=== PATIENT | female | born 1985 | race Caucasian/White ===

== ENCOUNTER 2025-03-26 09:43 | Emergency (ER) | payer OTHER, SELFPAY ==
[2025-03-26 09:50] VITALS: BP 125/79; PULSE 92; RESP 18; TEMP 36.6; O2SAT 100
--- OUTSIDE RECORDS SUMMARY | 2025-03-26 10:07 | XMS_ITS | Clinical Summary ---
Author Organization [facility] [address] Address [address] [place] [address] Phone Care Team Providers Care Open Source Developer Name Role Phone No, Physician Primary Care Provider [phone] Allergies No known active allergies Medications cetirizine (ZyrTEC) 10 mg tablet Take 1 tablet (10 mg total) by mouth daily 1 Active desvenlafaxine succinate (PRISTIQ) 50 mg 24 hr tablet Take 1 tablet (50 mg total) by mouth daily 2 Active norethindrone-e.e stradioL-iron (JUNEL FE 06/04) 1 mg-20 mcg (21)/75 mg (7) per tabletIndications :Oral contraceptive pill surveillance Take 1 tablet by mouth daily 84 tablet 4 2 Active Additional Information Patient not taking.Reported on 10/03/2024 buPROPion XL (WELLBUTRIN XL) 150 mg 24 hr tablet Take 1 tablet (150 mg total) by mouth daily 4 Active buPROPion XL (WELLBUTRIN XL) 300 mg 24 hr tablet Take 1 tablet (300 mg total) by mouth daily 4 Active atomoxetine (STRATTERA) 100 mg capsule Take 1 capsule (100 mg total) by mouth daily 5 Active busPIRone (BUSPAR) 15 mg tablet Take 1 tablet (15 mg total) by mouth 2 (two) times a day 5 Active Active Problems Problem Noted Date Diagnosed Date Menorrhagia with regular cycle 10/07/2020 Surgical History Surgery Date Site/Laterality Comments TUBAL LIGATION 05/16/2013 - 05/15/2014 AUGMENTATION MAMMOPLASTY 03/16/2024 - 04/14/2024 AUGMENTATION MAMMAPLASTY Medical History Medical History Date Comments Epilepsy (HCC) Abnormal Pap smear of cervix ear ly . HPV positive. Reportedly normal biopsy. Chlamydia 2003, 2017 Family History Medical History Relation Name Comments Diabetes Father Skin cancer Maternal Grandmother Diabetes Mother Hypertension Mother Breast cancer Paternal Grandmother Relation Name Status Comments Father Alive Maternal Grandmother Mother Alive Paternal Grandmother Social History Tobacco Use Types Packs/Day Years Used Date Smoking Tobacco: Former Cigarettes 0.5 25 1 - 2019 Vaping Smokeless Tobacco: Never Tobacco Cessation:Counseling Given: Not Answered Comments:Quit smoking 2018. Quit vaping 12/2019. Comments No Sex and Gender Information Value Date Recorded Sex Assigned at Not on file Legal Sex Female 1:42 AM SECTION GANG Gender Identity Not on file Sexual Orientation Not on file Occupation Industry Job Start Date Job End Date [employer] Not on file Not on file Not on file Obstetrics History Para Term AB IAB SAB Ectopic Multiple Livin g Live Births 2 2 2 2 2 Date Outcome GA Total Labor Labor/2nd/3rd Weight Sex Type Anes PTL Lety A1 A5 Name Clin 2009 Term 3.232 kg (7 lb 2 oz) Vag-S pont Living 2013 Term 3.147 kg (6 lb 15 oz) F Vag-S pont Living Last Filed Vital Signs Vital Sign Reading Time Taken Comments Blood Pressure 110/80 10/03/2024 11:29 AM CDT Pulse 63 05/25/2021 4:57 PM SECTION GANG Temperature 37.2 C (99 F) 05/25/2021 4:57 PM SECTION GANG Respiratory Rate 18 05/25/2021 4:57 PM SECTION GANG Oxygen Saturation 97% 05/25/2021 4:57 PM SECTION GANG Inhaled Oxygen Concentration - - Weight 63.5 kg (139 lb 15.9 oz) 11/06/2024 3:37 PM CDT Height 160 cm (5' 2.99) 11/06/2024 3:37 PM CDT Body Mass Index 24.8 11/06/2024 3:37 PM CDT Plan of Treatment Health Maintenance Due Date Last Done Comments Depression Screening 1984 Hepatitis C Screening 1984 Varicella Vaccines (1 of 2 - 13+ 2-dose series) 1997 Hepatitis B Screening 2002 HPV Vaccines (1 - 3-dose SCDM series) 2011 DTaP/Tdap/Td Vaccine (1 - Tdap) 04/21/2014 04/20/2014 Influenza Vaccine (#1) 2025 05/26/2012 Cervical Cancer Screening 08/23/20252024, 08/23/2024, 07/09/2020 Regular Well Visit/Exam 18-64 08/23/2025 08/23/2024, 08/03/2023, 07/14/2022, Additional history exists Breast Cancer Screening-Mammogram 11/06/2025 11/06/2024 Pneumococcal vaccine <65 Aged Out No longer eligible based on patient's age to complete this topic Procedures Procedure Name Priority Date/Time Associated Diagnosis Comments SCREENING MAMMOGRAM BILATERAL W GARY W IMPLANTS Schedule Routine, Read Routine (OP Routine) 11/06/2024 3:35 PM CDT Encounter for screening mammogram for breast cancer HIGH RISK HPV DNA DETECTION WITH GENOTYPING Routine 08/23/2024 9:30 AM CDT Screening for malignant neoplasm of the cervix from Last 3 Months or Most Recently Relevant to Health Maintenance Results * Screening Mammogram Bilateral W Gary W Implants (11/06/2024 3:35 PM CDT) Anatomical Region Laterality Modality Breast Bilateral Mammography Impressions 11/06/2024 5:36 PM CDT Bilateral No evidence of malignancy in either breast. OVERALL BI-RADS FINAL ASSESSMENT: 2 - Benign RECOMMENDATION: Recommend bilateral annual screening mammography. Narrative 11/06/2024 5:36 PM CDT EXAMINATION: Screening Mammogram Bilateral W Gary W Implants: 11/06/2024 COMPARISON: This is the patient's baseline mammogram. TECHNIQUE: Mammography was performed with 2D and digital breast tomosynthesis (DBT) images. CAD was utilized. BREAST PARENCHYMAL COMPOSITION: The breasts are heterogeneously dense, which may obscure small masses. FINDINGS: Bilateral There is no suspicious mass, calcification, or architectural distortion in either breast.There are bilateral subpectoral silicone breast implants. The presence of implants limits the sensitivity of mammography. Sapphire Recinos MD IMG MAMMO PROCEDURES Final Result * (ABNORMAL) High Risk HPV DNA Detection with Genotyping (Molecular component) (08/23/2024 9:30 AM CDT) HPV HR 16 Detected(A) Not Detected [facility] Comment:Testing performed by : [facility], [address] [facility], [id number] HPV HR 18 Not Detected Not Detected [facility] Comment:Testing performed by : [facility], [address] [facility], [id number] HPV HR Non 16/18 Not Detected Not Detected [facility] Comment: Interpretive Data Nucleic acid amplification for detection of high-risk Human Papilloma virus (HPV) is performed by the Ramya Melvin 6800 HPV test. This assay specifically detects HPV-16 and HPV-18 genotypes. The following HPV genotypes are detected as high-risk HPV: HPV-31, 33, 35, ,39, 45, 51, 52, 56, 58, 59, 66, and 68. This assay has been approved by the [place] Food and Drug Administration for detection of HPV in cervical specimens collected by a physician using an endocervical brush/spatula or cervical broom and placed in the ThinPrep Pap Test PreservCyt collection containers. The performance characteristics of this test have been verified by the [facility] Molecular Infectious Disease laboratory. Correlate with separately reported cytology results, as applicable. Interpretive data last revised 22 Testing performed by: [facility], [address] [facility], [id number] Endocervical 08/23/2024 9:30 AM CDT 08/24/2024 2:39 PM CDT Narrative [facility] - 08/25/2024 4:02 AM CDT Clinical history and diagnosis->DX Z12.4 Testing type->Screening Last menstrual period (date if known)->08/10/24 Previous negative PAP?->Yes Sapphire Recinos MD LAB BODY FLUIDS AND S TOOLS ORDERABLES Final Result [facility] [id number] Department [place] [address] [facility] from Last 3 Months or Most Recently Relevant to Health Maintenance Insurance [facility] CHOICE [facility]US [facility] H[facility]/PPO Address: [facility] [id number] [place] [id number] Advance Directives For more information, please contact: [phone] Documents on File Type Date Recorded Patient Transportation Security Screener Expl anation ADVANCE DIRECTIVE 07/09/2020 4:08 PM Care Teams Open Source Developer Relationship Specialty Start Date End Date No, Physician PCP - General 03/17/20
--- OUTSIDE RECORDS SUMMARY | 2025-03-26 10:07 | XMS_ITS | Patient Health Record ---
Author Organization [facility] [employer] Address [address] [facility] [address] [place] [address] Care Team Providers Care Vehicle Modification Technician Name Role Phone Mei Delatorre MD Primary Care Provider Unavailab Brittany Tinoco Unavailable [phone] Gustavo Reji Unavailable [phone] Allergies No Known Allergies Results Component Value Reference Range Notes UDT Reviewed date:07/26/2024 03:44:26 PM Interpretation: Performing Lab: Notes/Report: Amphetamine (AMP) N 0 - 1000 ng/ml Buprenorphine (BUP) N 0 - 10 ng/ml Oxazepam (BZO) N 0 - 300 ng/ml Cocaine (DUY) N 0 - 300 ng/ml Methamphetamine (mAMP) N 0 - 300 ng/ml Methylenedioxymethamphetamine (MDMA) N 0 - 500 ng/ml Morphine (MOP) N 0 - 25 ng/ml Methadone (MTD) N 0 - 300 ng/ml Oxycodone (OXY) N 0 - 300 ng/ml THC N 0 - 50 ng/ml x N 0 - 1000 ng/ml x N 0 - 1000 ng/ml x N 0 - 300 ng/ml x N 0 - 300 ng/ml x N 0 - 300 ng/ml UDT Reviewed date:01/16/2025 09:34:33 AM Interpretation: Performing Lab: Notes/Report: Amphetamine (AMP) n 0 - 1000 ng/ml Buprenorphine (BUP) n 0 - 10 ng/ml Oxazepam (BZO) n 0 - 300 ng/ml Cocaine (DUY) n 0 - 300 ng/ml Methamphetamine (mAMP) n 0 - 300 ng/ml Methylenedioxymethamphetamine (MDMA) n 0 - 500 ng/ml Morphine (MOP) n 0 - 25 ng/ml Methadone (MTD) n 0 - 300 ng/ml Oxycodone (OXY) n 0 - 300 ng/ml THC n 0 - 50 ng/ml x n 0 - 1000 ng/ml x n 0 - 1000 ng/ml x n 0 - 300 ng/ml x n 0 - 300 ng/ml UDT Reviewed date:02/14/2025 03:55:01 PM Interpretation: Performing Lab: Notes/Report: Amphetamine (AMP) n 0 - 1000 ng/ml Buprenorphine (BUP) n 0 - 10 ng/ml Oxazepam (BZO) n 0 - 300 ng/ml Cocaine (DUY) n 0 - 300 ng/ml Methamphetamine (mAMP) n 0 - 300 ng/ml Methylenedioxymethamphetamine (MDMA) n 0 - 500 ng/ml Morphine (MOP) n 0 - 25 ng/ml Methadone (MTD) n 0 - 300 ng/ml Oxycodone (OXY) n 0 - 300 ng/ml THC n 0 - 50 ng/ml x n 0 - 1000 ng/ml x n 0 - 1000 ng/ml x n 0 - 300 ng/ml x n 0 - 300 ng/ml Reason For Referral No Information Medications Medication SIG (Take, Route, Frequency, Duration) Notes Start Date End Date Status Qelbree 200 MG Capsule Extended Release 24 Hour 2 capsule Orally Once a day; Duration: 90 days 02/27/2025 Active Gabapentin 300 MG Capsule TAKE ONE CAPSU LE BY MOUTH TWICE DAILY FOR NERVE PAIN Oral; Duration: 10 Days Active Cefadroxil 500 MG Capsule Oral; Duration: 7 Days Active busPIRone HCl 15 MG Tablet 1 tablet Oral 3 times a day; Duration: 90 days 02/27/2025 05/28/2025 Active buPROPion HCl ER (XL) 150 MG Tablet Extended Release 24 Hour 1 tablet in the morning Orally Once a day; Duration: 90 days 02/27/2025 Active Desvenlafaxine Succinate ER 50 MG Tablet Extended Release 24 Hour 1 tablet Oral Once a day; Duration: 90 days 02/27/2025 Active Social History Tobacco Use: Social History Observation Description Date Details (start date - stop date) Former Smoker NA - NA Sex Assigned At : Social History Observation Description Sex Assigned At Female Social History Miscellaneous: Social Info Question Answer Notes Safety issues: Are there any firearms in the house? No Social History Social Info Question Answer Notes Household: Marital Status: Number of Adults in household: 2 Number of Children in Household: 2 Level of Education: Finished College Drug/Alcohol: Social Info Question Answer Notes Drugs Have you used drugs other than those for medical reasons in the past 12 months? No AUDIT-C (Standard) Did you have a drink containing alcohol in the past year? No Tobacco Use: Social Info Question Answer Notes Tobacco Control (Standard) Tobacco use: Former smoker How long has it been since you last smoked? 1-5 years Problems Problem Type SNOMED Code ICD Code Onset Dates Problem Status W/U Status Risk Notes Problem Severe recurrent major depression without psychotic features (76937319) Major depressive disorder, recurrent severe without psychotic features (F33.2) Active confirmed Problem Generalized anxiety disorder (68013769) Generalized anxiety disorder (F41.1) Active confirmed Problem Attention deficit hyperactivity disorder (516807696) ADHD (attention deficit hyperactivity disorder), combined type (F90.2) Active confirmed ADHD Symptoms Confirmed: ASRS scores indicate ADHD, particularly in attention regulation and impulse control.Respon se Inhibition Deficits: High errors and interference ratio in the Double Trouble task suggest difficulty suppressing distractions and controlling impulsive responses.Slow er Reaction Time & Variability: Increased reaction time and variability suggest inconsistent cognitive processing speed, which is common in ADHD.Sustained Attention is Mostly Intact: Good performance on omission errors and commission errors indicates reasonable sustained attention. Problem Moderate recurrent major depression (20528645) MDD (major depressive disorder), recurrent episode, moderate (F33.1) Active confirmed Problem Unable to concentrate (finding) (71825384) Difficulty concentrating (R41.840) Active confirmed Vital Signs Heart Rate 78 /min 02/27/2025 Height-cm 160.02 cm 02/27/2025 Blood pressure diastolic 81 mm Hg 02/27/2025 Weight-kg 62.6 kg 02/27/2025 Height 63 in 02/27/2025 Blood pressure systolic 121 mm Hg 02/27/2025 Weight 138 lbs 02/27/2025 BMI 24.44 kg/m2 02/27/2025 Encounters Encounter Location Date Provider Diagnosis [facility] [employer] [address] [address] 07/26/2024 Brittany Overton MDD (major depressiv e disorder), recurrent episode, moderate F33.1 ; Generalized anxiety disorder F41.1 ; Difficulty concentrating R41.840 ; Encounter for screening for depression Z13.31 and Encounter for screening for cardiovascular disorders Z13.6 [facility] [place] [address] [place] [place] [address] 07/30/2024 Reji Chen Lack of concentratio n R41.840 [place] [address] [place] [address] 08/09/2024 Brittany Overton Generalized anxiety disorder F41.1 ; MDD (major depressive disorder), recurrent episode, moderate F33.1 ; Encounter for screening for depression Z13.31 ; Encounter for screening for cardiovascular disorders Z13.6 and ADHD (attention deficit hyperactivity disorder), combined type F90.[address] [place] [place] [address] 09/06/2024 Brittanyjose Overton Encounter for screen ing for depression Z13.31 ; Encounter for screening for cardiovascular disorders Z13.6 ; Generalized anxiety disorder F41.1 ; MDD (major depressive disorder), recurrent episode, moderate F33.1 and ADHD (attention deficit hyperactivity disorder), combined type F90.2 [facility] [place] [address] [facility] [address] [place] [address] 10/17/2024 Brittanyjose Overton Encounter for screen ing for depression Z13.31 ; ADHD (attention deficit hyperactivity disorder), combined type F90.2 ; Encounter for screening for cardiovascular disorders Z13.6 ; Generalized anxiety disorder F41.1 and MDD (major depressive disorder), recurrent episode, moderate F33.1 [facility] [address] [place] [address] 12/17/2024 Brittanyjose Overton ADHD (attention defi cit hyperactivity disorder), combined type F90.2 ; Generalized anxiety disorder F41.1 and MDD (major depressive disorder), recurrent episode, moderate F33.1 [facility] [address] [place] [address] 01/15/2025 Brittanyjose [place] ADHD (attention defi cit hyperactivity disorder), combined type F90.2 ; Generalized anxiety disorder F41.1 and MDD (major depressive disorder), recurrent episode, moderate F33.1 [facility] [employer] [address] [place] [address] 02/14/2025 Brittany Overton ADHD (attention defi cit hyperactivity disorder), combined type F90.2 ; Generalized anxiety disorder F41.1 and MDD (major depressive disorder), recurrent episode, moderate F33.1 [facility], [facility] [address] [place] [address] 02/27/2025 Brittany Overton ADHD (attention defi cit hyperactivity disorder), combined type F90.2 ; Generalized anxiety disorder F41.1 ; MDD (major depressive disorder), recurrent episode, moderate F33.1 and MTHFR gene mutation Z15.89 [facility], [facility] [address] [place] [address] 10/11/2024 Brittany Overton Generalized anxiety disorder F41.1 [facility], [facility] [address] [place] [address] 10/18/2024 Brittany Overton [facility], [facility] [address] [place] [address] 10/18/2024 Brittany Overton [facility], [facility] [address] [place] [address] 12/17/2024 Brittany Overton [facility], [facility] [address] [place] [address] 03/04/2025 Brittany Overton [facility], [facility] [address] [place] [address] 11/26/2024 Brittany Overton MDD (major depressiv e disorder), recurrent episode, moderate F33.1 [facility], [facility] [address] [place] [address] 01/17/2025 Brittany Overton [facility], [facility] [address] [place] [address] 01/17/2025 Brittany Overton [facility], [facility] [address] [place] [address] 01/18/2025 Brittany Overton [facility], [facility] [address] [place] [address] 01/21/2025 Brittany Overton [facility], [facility] [address] [place] [address] 01/21/2025 Brittany Overton [facility], [facility] [address] [place] [address] 02/21/2025 Brittany Overton [facility], [facility] [address] [place] [address] 02/21/2025 Brittany Overton [facility], [facility] [address] [place] [address] 02/22/2025 Brittany Overton [facility], [facility] [address] [place] [address] 02/27/2025 Brittany Overton [facility], [facility] [address] [place] [address] 02/27/2025 Brittany Overton Generalized anxiety disorder F41.1 ; MDD (major depressive disorder), recurrent episode, moderate F33.1 and ADHD (attention deficit hyperactivity disorder), combined type F90.2 [facility], [facility] [address] [place] [address] 02/27/2025 Brittany Overton [facility], [facility] [address] [place] [address] 02/28/2025 Brittany Overton [facility], [facility] [address] [place] [address] 02/28/2025 Brittany Overton [facility], [facility] [address] [place] [address] 02/28/2025 Brittany Overton [facility], [facility] [address] [place] [address] 02/28/2025 Brittany Overton [facility], [facility] [address] [place] [address] 03/01/2025 Brittany Overton [facility], [facility] [address] [place] [address] 03/01/2025 Brittany Overton [facility], [facility] [address] [place] [address] 03/05/2025 Brittany Overton [facility], [facility] [address] [place] [address] 03/05/2025 Brittany Overton [facility], [facility] [address] [place] [address] 03/05/2025 Brittany Overton [facility], [facility] [address] [place] [address] 03/05/2025 Brittany Overton [facility], [facility] [address] [place] [address] 03/05/2025 Brittany Overton [facility], [facility] [address] [place] [address] 03/06/2025 Brittany Overton [facility], [facility] [address] [place] [address] 03/07/2025 Brittany Overton [facility], [facility] [address] [place] [address] 03/12/2025 Brittany Overton [facility], [facility] [address] [place] [address] 03/13/2025 Brittany Overton [facility], [facility] [address] [place] [address] 03/13/2025 Brittany Overton Assessments Encounter Date Diagnosis (ICD Code) Assessment Notes Treatment Notes Treatment Clinical Notes Section Notes 07/26/2024 Generalized anxiety disorder (ICD-10 - F41.1) 07/26/2024 MDD (major depressive disorder), recurrent episode, moderate (ICD-10 - F33.1) SSRI/SNRI side effects discussed including but not limited to, gastric upset, nausea, vomiting, diarrhea and/or constipation, weight changes, sexual side effects including loss of libido, increased suicidal thoughts/behavio rs in children and young adults, and serotonin syndrome. 07/30/2024 Lack of concentration (ICD-10 - R41.840) Analysis of Cognitive Assessment & ASRS Results 1. ADHD Screening (ASRS) Indicative for ADHD: The ASRS results show that Part A behaviors exceed the threshold (>3), indicating symptoms consistent with ADHD. Part B behaviors (9) further reinforce the presence of ADHD-related symptoms. 2. Cognitive Performance Overview Planning (Spatial Planning): Score of 20 (Above threshold, 63rd percentile). No significant impairment. Spatial Working Memory: Score of 5.6 (Within normal range, 42nd percentile). Attention (Feature Match): Errors: 0 errors (15th percentile, within normal range). Reaction time: 3293ms (74th percentile, slower than expected). Impulsivity: No significant impulsive response detected. Response Inhibition (Double Trouble Task): Number of Errors: 12 (83rd percentile, high errors, potential impairment). Interference Ratio for Errors: 6 (85th percentile, significant impairment). Reaction Time Variability: 908ms (73rd percentile, increased variability). Overall Reaction Time: 2682ms (79th percentile, slower processing speed). Sustained Attention (SART Task): Commission Errors: 2 errors (4th percentile, excellent performance). Omission Errors: 0 errors (15th percentile, within normal range). Reaction Time Variability: 129ms (43rd percentile, moderate performance). Slowing after Errors: -43ms (21st percentile, suboptimal recovery after mistakes). Benjamin Findings ADHD Symptoms Confirmed: ASRS scores indicate ADHD, particularly in attention regulation and impulse control. Response Inhibition Deficits: High errors and interference ratio in the Double Trouble task suggest difficulty suppressing distractions and controlling impulsive responses. Slower Reaction Time & Variability: Increased reaction time and variability suggest inconsistent cognitive processing speed, which is common in ADHD. Sustained Attention is Mostly Intact: Good performance on omission errors and commission errors indicates reasonable sustained attention. Recommendations 1. Medication Adjustment If Atomoxetine (Strattera) 80 mg is currently in use, but symptoms persist (as seen in cognitive performance deficits), increasing the dose to 100 mg/day could be considered. If side effects are present, combination therapy (e.g., adding a stimulant or switching to a different medication) could be an option. 2. Cognitive & Behavioral Strategies Executive Function Support: Use external reminders, structured routines, and task prioritization tools to compensate for response inhibition challenges. Processing Speed Training: Cognitive training programs can improve reaction time and consistency. Mindfulness or CBT: Helps regulate impulsive behaviors and improve cognitive flexibility. 08/09/2024 Generalized anxiety disorder (ICD-10 - F41.1) 09/06/2024 Encounter for screening for depression (ICD-10 - Z13.31) 10/11/2024 Generalized anxiety disorder (ICD-10 - F41.1) 10/17/2024 Encounter for screening for depression (ICD-10 - Z13.31) 10/17/2024 ADHD (attention deficit hyperactivity disorder), combined type (ICD-10 - F90.2) ADHD Symptoms Confirmed: ASRS scores indicate ADHD, particularly in attention regulation and impulse control.Respons e Inhibition Deficits: High errors and interference ratio in the Double Trouble task suggest difficulty suppressing distractions and controlling impulsive responses.Slowe r Reaction Time & Variability: Increased reaction time and variability suggest inconsistent cognitive processing speed, which is common in ADHD.Sustained Attention is Mostly Intact: Good performance on omission errors and commission errors indicates reasonable sustained attention. 11/26/2024 MDD (major depressive disorder), recurrent episode, moderate (ICD-10 - F33.1) 12/17/2024 ADHD (attention deficit hyperactivity disorder), combined type (ICD-10 - F90.2) ADHD Symptoms Confirmed: ASRS scores indicate ADHD, particularly in attention regulation and impulse control.Respons e Inhibition Deficits: High errors and interference ratio in the Double Trouble task suggest difficulty suppressing distractions and controlling impulsive responses.Slowe r Reaction Time & Variability: Increased reaction time and variability suggest inconsistent cognitive processing speed, which is common in ADHD.Sustained Attention is Mostly Intact: Good performance on omission errors and commission errors indicates reasonable sustained attention. ADHD Stimulant Education -Discussed with patient risk of misuse, abuse, and addiction before prescribing stimulant medicines. -Counseled not to share their prescribed stimulant with anyone else. -Educated patient will monitor during treatment: regularly assess and monitor them for signs and symptoms of nonmedical use, addiction, and potential diversion, which may be evidenced by more frequent renewal requests and medication metabolites absent from urine drug screens. -Random UDS (at least every three months or more frequently deemed by provider). -Per office policy, only prescribed to local pharmacy in [place], no early refills on control substance. 02/14/2025 Generalized anxiety disorder (ICD-10 - F41.1) 02/14/2025 ADHD (attention deficit hyperactivity disorder), combined type (ICD-10 - F90.2) ADHD Symptoms Confirmed: ASRS scores indicate ADHD, particularly in attention regulation and impulse control.Respons e Inhibition Deficits: High errors and interference ratio in the Double Trouble task suggest difficulty suppressing distractions and controlling impulsive responses.Slowe r Reaction Time & Variability: Increased reaction time and variability suggest inconsistent cognitive processing speed, which is common in ADHD.Sustained Attention is Mostly Intact: Good performance on omission errors and commission errors indicates reasonable sustained attention. ADHD Stimulant Education -Discussed with patient risk of misuse, abuse, and addiction before prescribing stimulant medicines. -Counseled not to share their prescribed stimulant with anyone else. -Educated patient will monitor during treatment: regularly assess and monitor them for signs and symptoms of nonmedical use, addiction, and potential diversion, which may be evidenced by more frequent renewal requests and medication metabolites absent from urine drug screens. -Random UDS (at least every three months or more frequently deemed by provider). -Per office policy, only prescribed to local pharmacy in [place], no early refills on control substance. 01/15/2025 ADHD (attention deficit hyperactivity disorder), combined type (ICD-10 - F90.2) ADHD Symptoms Confirmed: ASRS scores indicate ADHD, particularly in attention regulation and impulse control.Respons e Inhibition Deficits: High errors and interference ratio in the Double Trouble task suggest difficulty suppressing distractions and controlling impulsive responses.Slowe r Reaction Time & Variability: Increased reaction time and variability suggest inconsistent cognitive processing speed, which is common in ADHD.Sustained Attention is Mostly Intact: Good performance on omission errors and commission errors indicates reasonable sustained attention. ADHD Stimulant Education -Discussed with patient risk of misuse, abuse, and addiction before prescribing stimulant medicines. -Counseled not to share their prescribed stimulant with anyone else. -Educated patient will monitor during treatment: regularly assess and monitor them for signs and symptoms of nonmedical use, addiction, and potential diversion, which may be evidenced by more frequent renewal requests and medication metabolites absent from urine drug screens. -Random UDS (at least every three months or more frequently deemed by provider). -Per office policy, only prescribed to local pharmacy in [place], no early refills on control substance. 02/27/2025 ADHD (attention deficit hyperactivity disorder), combined type (ICD-10 - F90.2) ADHD Symptoms Confirmed: ASRS scores indicate ADHD, particularly in attention regulation and impulse control.Respons e Inhibition Deficits: High errors and interference ratio in the Double Trouble task suggest difficulty suppressing distractions and controlling impulsive responses.Slowe r Reaction Time & Variability: Increased reaction time and variability suggest inconsistent cognitive processing speed, which is common in ADHD.Sustained Attention is Mostly Intact: Good performance on omission errors and commission errors indicates reasonable sustained attention. 02/27/2025 Generalized anxiety disorder (ICD-10 - F41.1) 01/15/2025 Generalized anxiety disorder (ICD-10 - F41.1) 02/27/2025 MDD (major depressive disorder), recurrent episode, moderate (ICD-10 - F33.1) 02/14/2025 MDD (major depressive disorder), recurrent episode, moderate (ICD-10 - F33.1) I'm considering augmenting therapy with a new medication or starting/switchi ng to a new medication List all the [facility] medications that you are considering for augmentation or starting/switchi ng to Medication considered [id number] Escitalopram (Lexapro) and [id number] Sertraline (Zoloft) I'm considering a dosage adjustment to currently prescribed medication(s)Wel lbutrin Have you considered non-genetic factors to make a preliminary drug selection, including a personalized medication decision based on the patient's diagnosis, the patient's other medical conditions, other medications the patient is taking, professional judgment, clinical science and basic science pertinent to the drug (e.g. mechanism of action, side effects), the patient's past medical history, and when pertinent, family history and the patient's preferences and values? YES [facility] MTHFR __x____ Yes NO 02/27/2025 Generalized anxiety disorder (ICD-10 - F41.1) 12/17/2024 Generalized anxiety disorder (ICD-10 - F41.1) 10/17/2024 Encounter for screening for cardiovascular disorders (ICD-10 - Z13.6) 08/09/2024 MDD (major depressive disorder), recurrent episode, moderate (ICD-10 - F33.1) SSRI/SNRI side effects discussed including but not limited to, gastric upset, nausea, vomiting, diarrhea and/or constipation, weight changes, sexual side effects including loss of libido, increased suicidal thoughts/behavio rs in children and young adults, and serotonin syndrome. 09/06/2024 Encounter for screening for cardiovascular disorders (ICD-10 - Z13.6) 08/09/2024 Encounter for screening for depression (ICD-10 - Z13.31) 07/26/2024 Difficulty concentrating (ICD-10 - R41.840) 08/09/2024 Encounter for screening for cardiovascular disorders (ICD-10 - Z13.6) 07/26/2024 Encounter for screening for depression (ICD-10 - Z13.31) 09/06/2024 Generalized anxiety disorder (ICD-10 - F41.1) 10/17/2024 Generalized anxiety disorder (ICD-10 - F41.1) 12/17/2024 MDD (major depressive disorder), recurrent episode, moderate (ICD-10 - F33.1) SSRI/SNRI side effects discussed including but not limited to, gastric upset, nausea, vomiting, diarrhea and/or constipation, weight changes, sexual side effects including loss of libido, increased suicidal thoughts/behavio rs in children and young adults, and serotonin syndrome. 02/27/2025 MDD (major depressive disorder), recurrent episode, moderate (ICD-10 - F33.1) 02/27/2025 MTHFR gene mutation (ICD-10 - Z15.89) Recommend L-methylfolate 15mg daily 01/15/2025 MDD (major depressive disorder), recurrent episode, moderate (ICD-10 - F33.1) SSRI/SNRI side effects discussed including but not limited to, gastric upset, nausea, vomiting, diarrhea and/or constipation, weight changes, sexual side effects including loss of libido, increased suicidal thoughts/behavio rs in children and young adults, and serotonin syndrome. 02/27/2025 ADHD (attention deficit hyperactivity disorder), combined type (ICD-10 - F90.2) ADHD Symptoms Confirmed: ASRS scores indicate ADHD, particularly in attention regulation and impulse control.Respons e Inhibition Deficits: High errors and interference ratio in the Double Trouble task suggest difficulty suppressing distractions and controlling impulsive responses.Slowe r Reaction Time & Variability: Increased reaction time and variability suggest inconsistent cognitive processing speed, which is common in ADHD.Sustained Attention is Mostly Intact: Good performance on omission errors and commission errors indicates reasonable sustained attention. 09/06/2024 MDD (major depressive disorder), recurrent episode, moderate (ICD-10 - F33.1) SSRI/SNRI side effects discussed including but not limited to, gastric upset, nausea, vomiting, diarrhea and/or constipation, weight changes, sexual side effects including loss of libido, increased suicidal thoughts/behavio rs in children and young adults, and serotonin syndrome. 10/17/2024 MDD (major depressive disorder), recurrent episode, moderate (ICD-10 - F33.1) SSRI/SNRI side effects discussed including but not limited to, gastric upset, nausea, vomiting, diarrhea and/or constipation, weight changes, sexual side effects including loss of libido, increased suicidal thoughts/behavio rs in children and young adults, and serotonin syndrome. 08/09/2024 ADHD (attention deficit hyperactivity disorder), combined type (ICD-10 - F90.2) ADHD Symptoms Confirmed: ASRS scores indicate ADHD, particularly in attention regulation and impulse control.Respons e Inhibition Deficits: High errors and interference ratio in the Double Trouble task suggest difficulty suppressing distractions and controlling impulsive responses.Slowe r Reaction Time & Variability: Increased reaction time and variability suggest inconsistent cognitive processing speed, which is common in ADHD.Sustained Attention is Mostly Intact: Good performance on omission errors and commission errors indicates reasonable sustained attention. 07/26/2024 Encounter for screening for cardiovascular disorders (ICD-10 - Z13.6) 09/06/2024 ADHD (attention deficit hyperactivity disorder), combined type (ICD-10 - F90.2) ADHD Symptoms Confirmed: ASRS scores indicate ADHD, particularly in attention regulation and impulse control.Respons e Inhibition Deficits: High errors and interference ratio in the Double Trouble task suggest difficulty suppressing distractions and controlling impulsive responses.Slowe r Reaction Time & Variability: Increased reaction time and variability suggest inconsistent cognitive processing speed, which is common in ADHD.Sustained Attention is Mostly Intact: Good performance on omission errors and commission errors indicates reasonable sustained attention. Electronic Prior Authorization was requested for Qelbree 200 MG Capsule Extended Release 24 Hour. Provider can order medication once approval received. 07/26/2024 Other Increase Buspar to 7.5mg TID for anxiety Cont Desvenlafaxine 100mg daily for mood, anxiety Cont atomoxetine 80mg daily for ADHD Patient educated on all medications including potential benefits, side effects, risks. Educated on proper dosing schedule and importance of compliance. No history of ADHD evaluation, will schedule for evaluation to confirm diagnosis -Assessment and treatment plan reviewed with patient. -Compliance with treatment plan importance discussed. -Discussed the risks/benefits of this medication -Discussed medication side effects. -Contact office if symptoms worsen. -Discussed that it can take up to 6-8 weeks to see full therapeutic effects of psychotropic medications. -Crisis prevention hotline 988. 08/09/2024 Other Increase atomoxetine to 100mg daily for ADHD management Patient educated on all medications including potential benefits, side effects, risks. Educated on proper dosing schedule and importance of compliance. ADHD evaluation reviewed and discussed with pt Discussed risks/benefits/a lternatives to atomoxetine, including GI side effects, weight loss, irritability, constipation, sexual dysfunction, increase in blood pressure and liver damage. Patient denies any h/o cardiovascular disease, including hypertension, tachyarrhythmias . -Assessment and treatment plan reviewed with patient. -Compliance with treatment plan importance discussed. -Discussed the risks/benefits of this medication -Discussed medication side effects. -Contact office if symptoms worsen. -Discussed that it can take up to 6-8 weeks to see full therapeutic effects of psychotropic medications. -Crisis prevention [facility] 988. 09/06/2024 Other Stop atomoxetine due to ineffectiveness Start Qelbree 200mg daily for ADHD management Patient educated on all medications including potential benefits, side effects, risks. Educated on proper dosing schedule and importance of compliance. -Assessment and treatment plan reviewed with patient. -Compliance with treatment plan importance discussed. -Discussed the risks/benefits of this medication -Discussed medication side effects. -Contact office if symptoms worsen. -Discussed that it can take up to 6-8 weeks to see full therapeutic effects of psychotropic medications. -Crisis prevention [facility] 98. 10/17/2024 Other Stable on current medication regimen, continue at current doses. -Refills sent in today -No concerns today Patient educated on all medications including potential benefits, side effects, risks. Educated on proper dosing schedule and importance of compliance. -Assessment and treatment plan reviewed with patient. -Compliance with treatment plan importance discussed. -Discussed the risks/benefits of this medication -Discussed medication side effects. -Contact office if symptoms worsen. -Discussed that it can take up to 6-8 weeks to see full therapeutic effects of psychotropic medications. -Crisis prevention [facility] 988. 12/17/2024 Other Discontinue Qelbree Start Vyvanse 30mg daily for ADHD management Patient educated on all medications including potential benefits, side effects, risks. Educated on proper dosing schedule and importance of compliance. [place] report checked and consistent with prescription history, no controlled substance prescriptions from other providers. -Assessment and treatment plan reviewed with patient. -Compliance with treatment plan importance discussed. -Discussed the risks/benefits of this medication -Discussed medication side effects. -Contact office if symptoms worsen. -Discussed that it can take up to 6-8 weeks to see full therapeutic effects of psychotropic medications. -Crisis prevention [facility] 98. 01/15/2025 Other Start adderall IR 5mg in the afternoons for ADHD management as needed Decrease pristiq to 50mg daily Start Wellbutrin 150mg daily for mood, libido. Patient educated on all medications including potential benefits, side effects, risks. Educated on proper dosing schedule and importance of compliance. [place] report checked and consistent with prescription history, no controlled substance prescriptions from other providers. -Assessment and treatment plan reviewed with patient. -Compliance with treatment plan importance discussed. -Discussed the risks/benefits of this medication -Discussed medication side effects. -Contact office if symptoms worsen. -Discussed that it can take up to 6-8 weeks to see full therapeutic effects of psychotropic medications. -Crisis prevention hotline 988. 02/14/2025 Other Continue off of stimulants -Plans to start Thesis supplement for ADHD support -Consider increase in Wellbutrin, non-stimulant for furture treatment as needed Patient educated on all medications including potential benefits, side effects, risks. Educated on proper dosing schedule and importance of compliance. GeneSight test ordered -Assessment and treatment plan reviewed with patient. -Compliance with treatment plan importance discussed. -Discussed the risks/benefits of this medication -Discussed medication side effects. -Contact office if symptoms worsen. -Discussed that it can take up to 6-8 weeks to see full therapeutic effects of psychotropic medications. -Crisis prevention hotline 988. 02/27/2025 Other GeneSight reviewed and discussed with patient Restart Qelbree- take 200mg daily for one week then 400mg daily for ADHD management Patient educated on all medications including potential benefits, side effects, risks. Educated on proper dosing schedule and importance of compliance. -Assessment and treatment plan reviewed with patient. -Compliance with treatment plan importance discussed. -Discussed the risks/benefits of this medication -Discussed medication side effects. -Contact office if symptoms worsen. -Discussed that it can take up to 6-8 weeks to see full therapeutic effects of psychotropic medications. -Crisis prevention hotline 988. Plan Of Treatment Pending Test Test Name Order Date Cytochrome P450 2D6 Genotyping 5 Cytochrome P450 2C9 Genotyping 5 Cytochrome P450 2C19 02/14/2025 Next Appt Details Provider Name:Brittany oates, 04/04/2025 11:30:00 AM, [address], [address], [place], [address], Insurance Providers Payer Name Payer Address Payer Phone Subscriber Number Group Number Insured Name Patient Relationship to Insured Coverage Start Date Coverage End Date [facility] [address] [place] [address] [id number] Sylvia Akbar Self - patient is the insured Medical (General) History Medical History History ICD Code Past Psychiatric History: Anxiety Disord er Surgical History Surgery Date(Month/Year) Tubal litigation
--- OUTSIDE RECORDS SUMMARY | 2025-03-26 10:07 | XMS_ITS | Clinical Summary ---
Author Organization [facility] Address [address] [place] [address] Phone Care Team Providers Care Rn Pain Management Name Role Phone Mihir Michael Primary Care Provider [phone] Medications desvenlafaxine succinate (Pristiq) 50 MG TABLET SR 24 HR Take 1 mg by mouth. Active buPROPion SR (Wellbutrin SR) 100 MG TABLET SR 12 HR Take 100 mg by mouth daily. Active busPIRone (BUSPAR) 15 MG Tablet Take 15 mg by mouth 3 times daily. Active Lisdexamfetamine Dimesylate (Vyvanse) 30 MG Capsule Take 30 mg by mouth daily. Active Active Problems Problem Noted Date Diagnosed Date DEBORAH (generalized anxiety disorder) 02/07/2025 ADHD 02/07/2025 Encounters Date Type Department Care Team Description 03/06/2025 3:30 PM CDT Outpatient Clinic Visit [facility] [address] [place] [address] Jose Colorado, ADJUSTO WRITER OPERATOR DEBORAH (generalized anxiety disorder) (Primary Dx); ADHD Discharge Disposition: Discharged to home or Selfcare 03/06/2025 Travel 02/07/2025 8:30 AM CDT Outpatient Clinic Visit [facility] [address] [place] [address] Cleopatra Jon, DISPLAY MECHANIC DEBORAH (generalized anxiety disorder) (Primary Dx); ADHD Discharge Disposition: Discharged to home or Selfcare 02/07/2025 Travel from Last 3 Months Family History Medical History Relation Name Comments Depression Father Diabetes Father High Cholesterol Father Hypertension Father Depression Mother Diabetes Mother High Cholesterol Mother Hypertension Mother No Known Problems Sister Relation Name Status Comments Father Alive Mother Alive Sister Alive Social History Tobacco Use Types Packs/Day Years Used Date Smoking Tobacco: Former Cigarettes Smokeless Tobacco: Never Tobacco Cessation:Counseling Given: Not Answered Alcohol Use Standard Drinks/Week Comments Not Currently 0 (1 standard drink = 0.6 oz pur e alcohol) Recovery for over 6 years Sexually Active Control Partners Comments Yes Male Comments Unknown Sex and Gender Information Value Date Recorded Sex Assigned at Not on file Legal Sex Female 7:35 PM CDT Gender Identity Not on file Sexual Orientation Not on file Plan of Treatment Upcoming Encounters Date Type Department Care Team (Latest Contact Info) Description 03/27/2025 3:30 PM CHEMICAL ENGINEERING PROFESSOR Outpatient Clinic Visit [facility] [address] [place] [phone] Jose Colorado, ADJUSTO WRITER OPERATOR [address] [place] [address] Discharge Disposition: Discharged to home or Selfcare 04/03/2025 3:30 PM CHEMICAL ENGINEERING PROFESSOR Outpatient Clinic Visit [facility] [address] [place] [address] Jose [place], ADJUSTO WRITER OPERATOR [address] [place] [address] Discharge Disposition: Discharged to home or Selfcare 04/10/2025 3:30 PM CHEMICAL ENGINEERING PROFESSOR Outpatient Clinic Visit [facility] [address] [place] [id number] Jose Colorado, ADJUSTO WRITER OPERATOR [address] [place] [address] Discharge Disposition: Discharged to home or Selfcare Health Maintenance Due Date Last Done Comments Hepatitis C Virus (HCV) Screening 1984 TdaP Immunization 1984 Hepatitis B Immunization (1 of 3 - 19+ 3-dose series) 2003 Pap Smear 2005 Human Papillomavirus (HPV) Immunization (1 - 3-dose SCDM series) 2011 Cervical Cancer Screening (CCS) 2014 HPV/Cotest 2014 Influenza Immunization (#1) 2025 SARS-COV-2 Immunization (1 - 2024- season) 2025 Mammogram 11/06/2025 11/06/2024 Respiratory Syncytial Virus (RSV) Immunization (Adult) (1 - 1-dose 75+ series) 2059 Discussion re Starting/Frequ ency of Mammograms Completed 11/06/2024 Meningococcal Immunization (ACWY) Aged Out No longer eligible based on patient's age to complete this topic Pneumococcal Immunization Combined Aged Out No longer eligible based on patient's age to complete this topic Rotavirus Immunization Aged Out No lo nger eligible based on patient's age to complete this topic Goals Goal Patient Goal Type Associated Problems Recent Progress Patient-Stated? Author Depression Depression On track(2024 4:33 PM CDT) Yes Cleopatra Jon, [facility] Note: I want to be in the Anger Management Group Pt wants to learn compassion Goal/Objective: Improve mood regulation. Anticipated Time Frame for Goal Completion: 6 months Goal Reviewed with: patient Readiness to change: Ready to change Department associated with goal: [facility] Steps to achieve goal: will attend counseling/psychotherapy sessions at least once monthly, at least 6 sessions, utilizing individual and/or group sessions to express thoughts and feelings. to identify, verbalize and process at least three contributing factors/triggers to anger and stress to identify and verbalize at least three actions/skills to prevent and/or cope with anger and stress. to put into action, at least one time weekly, for one month, an action/skill to prevent and or cope with anger and stress Insurance [facility] Care Teams Rn Pain Management Relationship Specialty Start Date End Date Mihir Michael [address] [place] [address] PCP - General Family Medicine 08/12/15
--- OUTSIDE RECORDS SUMMARY | 2025-03-26 10:07 | XMS_ITS | Clinical Summary ---
Author Organization [facility] Address [address] [address] Care Team Providers Care Hand Hose Cutter Name Role Phone Mei Delatorre MD Primary Care Provider [phone] Allergies No known active allergies Medications cetirizine (ZyrTEC) 10 mg tabletIndications :Environmental and seasonal allergies Take 1 Tablet (10 mg) by mouth every 24 hours. 90 Tablet 3 11/13/19 22 Active desvenlafaxine (PRISTIQ) 100 mg Extended Release 24 hour tabletIndications :Anxiety and depression TAKE 1 TABLET DAILY WITH BREAKFAST 90 Tablet 1 12/07/19 23 Active atomoxetine (STRATTERA) 40 mg capsuleIndication s:Attention deficit hyperactivity disorder (ADHD), unspecified ADHD type TAKE 1 CAPSULE TWICE A DAY 180 Capsule 1 07/05/19 25 Active busPIRone (BUSPAR) 7.5 mg TabletIndications :Situational mixed anxiety and depressive disorder TAKE 1 TABLET THREE TIMES A DAY 270 Tablet 3 07/10/19 25 Active semaglutide, weight loss, (WEGOVY) 0.25 mg/0.5 mL Pen Injector Inject 0.5 mL (0.25 mg) by subcutaneous injection every 7 days. Per wt loss clinic. Started treatment October 2023 08/03/19 Active Active Problems Problem Noted Date Diagnosed Date Cubital tunnel syndrome on left 09/10/2024 Numbness and tingling in left arm 09/10/2024 Heart palpitations 08/19/2023 Poor concentration 05/20/2023 History of substance abuse - in recovery since 2 019 04/19/2023 Situational mixed anxiety and depressive disorde r 08/31/2021 Encounters Date Type Department Care Team Description 03/20/2025 External Device Data [facility] ABSTRACTION Provider, Abstract 03/13/2025 External Device Data [facility] ABSTRACTION Provider, Abstract 03/05/2025 External Device Data [facility] ABSTRACTION Provider, Abstract from Last 3 Months Family History Medical History Relation Name Comments No Known Problems Daughter 1 No Known Problems Daughter 2 Diabetes Father Phill Blasioli High Cholesterol Father Phill Jose Luissioli Hypertension Father Phill Blasioli Diabetes Mother Jennifer Blasioli High Cholesterol Mother Jennifer [place] Hypertension Mother Jennifer [place] No Known Problems Sister Relation Name Status Comments Daughter 1 Alive Daughter 2 Alive Father Phill [place] Alive Mother Jennifer [place] Alive Sister Alive Social History Tobacco Use Types Packs/Day Years Used Date Smoking Tobacco: Former Cigarettes Q uit: 12/30/2020 Smokeless Tobacco: Never Alcohol Use Standard Drinks/Week Comments Not Currently 0 (1 standard drink = 0.6 oz pur e alcohol) Comments No Sex and Gender Information Value Date Recorded Sex Assigned at Female 10/11/2023 5:39 AM CDT Legal Sex Female 5:55 AM CDT Gender Identity Not on file Sexual Orientation Asexual 10/11/2023 5: 39 AM CDT Last Filed Vital Signs Vital Sign Reading Time Taken Comments Blood Pressure 108/68 08/02/2024 2:31 PM CDT Pulse 88 08/02/2024 2:31 PM CDT Temperature 36.9 C (98.4 F) 08/02/2024 2:31 PM CDT Respiratory Rate 18 08/02/2024 2:31 PM CDT Oxygen Saturation 99% 08/02/2024 2:31 PM CDT Inhaled Oxygen Concentration - - Weight 64 kg (141 lb) 08/02/2024 2:31 PM CDT Height 160 cm (5' 3) 08/02/2024 2:31 PM CDT Body Mass Index 24.98 08/02/2024 2:31 PM CDT Plan of Treatment Health Maintenance Due Date Last Done Comments DTAP/TDAP/TD VACCINES (1 - Tdap) 2003 HEPATITIS B VACCINES (1 of 3 - 19+ 3-dose series) 2003 HPV/Cotest (21-29) 2005 HPV VACCINES (1 - 3-dose SCD M series) 2011 HPV/Cotest (30-65) 2014 BREAST CANCER SCREENING 2024 INFLUENZA VACCINE (#1) 2024 CERVICAL CANCER SCREENING 08/24/2027 PAP SMEAR 08/24/2027 08/23/2024, 05/16 (Previously completed) Care Teams Hand Hose Cutter Relationship Specialty Start Date End Date Mei Delatorre MD [address] [place] [id number] PCP - General Internal Medicine 10/05/23
--- NOTE | 2025-03-26 10:18 | ED.SKABFB ---
HPI - Skin/Abscess/Foreign Bdy General Chief complaint: Skin/Abscess/Foreign Body Stated complaint: right arm abcess Time Seen by Provider: 03/26/25 10:00 Source: patient and RN notes reviewed Mode of arrival: ambulatory Limitations: no limitations History of Present Illness HPI narrative: 39-year-old female presents Express Care complaining of possible abscess to her right arm. Patient said approximately 4-5 days ago she admits that she injected methamphetamines to her right arm. Since then the patient reports worsening redness, swelling, pain to her right elbow she injected. Patient said that over the last 24 hours it got significantly worse reporting worsening redness and swelling and pain. Patient also reports body aches and chills, no fevers. Patient said she has been 6 years sober from drug use. Patient denies any other significant past medical history. Related Data Home Medications ?Medication ?Instructions ?Recorded ?Confirmed ?Last Taken ?Type bupropion HCl 300 mg 24 hr tablet, mg PO 03/26/25 Unknown History extended release buspirone 15 mg tablet mg 03/26/25 Unknown History desvenlafaxine succinate 50 mg mg PO 03/26/25 Unknown History tablet,extended release 24 hr flibanserin 100 mg tablet (Addyi) mg PO 03/26/25 Unknown History Allergies Allergy/AdvReac Type Severity Reaction Status Date / Time No Known Allergies Allergy Verified 03/26/25 10:16 Review of Systems Review of Systems: CONSTITUTIONAL: Denies fever, chills, or sweats. EYES: Denies visual changes, redness, or discharge. ENT: Denies rhinorrhea, congestion, sore throat, or otalgia. CARDIOVASCULAR: Denies chest pain, palpitations, or edema. RESPIRATORY: Denies cough or dyspnea. GASTROINTESTINAL: Denies abdominal pain, nausea, vomiting, or diarrhea. GENITOURINARY: Denies dysuria or hematuria. SKIN: Denies rash or itching. Positive for wound. MUSCULOSKELETAL: Denies back pain, joint pain, or myalgia. NEUROLOGIC: Denies headache, numbness, or weakness. PSYCHIATRIC: Denies anxiety or depression. All other systems reviewed are negative, except as documented in HPI. PMFSH Comments At the time of my signature, I reviewed and agree with the nursing past medical, surgical, social, and family history. There is no relevant family history pertinent to the patient complaint. Exam Narrative: GENERAL: This is a well-nourished, well-developed adult, in no apparent distress. They are non ill-appearing, nontoxic appearing. HEAD: normocephalic, atraumatic. EYES: Sclera clear/white. Conjunctiva normal. Vision is grossly intact. Extraocular movements intact EARS: External ears normal, Hearing grossly intact. NOSE: External nose normal THROAT: Mucous membranes moist, NECK: Neck supple, CARDIOVASCULAR: Regular rate and rhythm RESPIRATORY: Respiratory rate normal, respiratory effort nonlabored, no respiratory distress SKIN: Right elbow: Area of erythema and swelling measuring approximately 10 cm x 8 cm to the lateral proximal anterior elbow in the AC area. Skin is warm to touch, skin is indurated. Is tender to palpate. No area of fluctuance. Sensation intact. Capillary refill less than 2 seconds. Neurovascular status intact distally. NEURO: awake, alert, and oriented to person, place and time. There were no obvious focal neurologic abnormalities. EXTREMITIES: No joint tenderness, effusion, or edema noted. Course Course Emergency Course: Portions of this record may have been created with voice recognition software Level of Care: Express Care Visit Vital Signs Vital signs: Vital Signs Temperature 97.8 F 03/26/25 09:50 Pulse Rate 92 03/26/25 09:50 Respiratory Rate 18 03/26/25 09:50 Blood Pressure 125/79 03/26/25 09:50 Pulse Oximetry 100 03/26/25 09:50 Oxygen Delivery Room Air 03/26/25 09:50 Temperature 97.8 F 03/26/25 09:50 Pulse Rate 92 03/26/25 09:50 Respiratory Rate 18 03/26/25 09:50 Blood Pressure 125/79 03/26/25 09:50 Pulse Oximetry 100 03/26/25 09:50 Oxygen Delivery Room Air 03/26/25 09:50 Reviewed Transfer Transfered to: [facility]) Transportation: Other (private vehicle) Transfer rationale: Large right elbow abscess, rapidly progressing, patient requires higher level care, further evaluation management, possible IV antibiotics. Accepting physician: Dr. Ely [facility] - Skin/Abscess/Foreign Bdy MDM Narrative Medical decision making narrative: Patient has large abscess likely to her right elbow, appear cellulitic. Given patient's report of a rapidly progressive over last 24 hours, she would benefit with an ER transfer. Given patient's symptoms, it is recommend the patient seek a higher level care and proceed immediately to the emergency department. Patient agreed to [facility] ER, then she changed her might want to go to [facility] ER. Called over to [facility] ER and spoke to Cat Agosto who is aware this patient and Dr. Ely accepted the patient for transfer. Patient advised to remain NPO proceed immediately to the ER. Patient's vital signs hemodynamically stable. Unstable to take herself to the hospital via private vehicle. Patient's spouse will take her to the hospital. Differential Diagnosis Differential diagnosis: Likely abscess of skin or subcutaneous tissue, cellulitis and contact dermatitis Critical Care Time Critical Care Time Critical Care Time: No Discharge Plan Discharge Clinical Impression: Cellulitis, Abscess of right elbow Patient Disposition: Acute Care Hospital Condition: Stable Patient Language: Romansh Prescriptions: No Action buspirone 15 mg tablet bupropion HCl 300 mg tablet extended release 24 hr PO desvenlafaxine succinate 50 mg tablet extended release 24 hr PO Addyi 100 mg tablet PO Follow-up/Referrals: Diana,Ariana Calvert APN [Primary Care Provider, Unknown] Time of Disposition: 10:30
== END 2025-03-26 10:25 | disposition short-term general hospital (02) ==
PROVIDERS: PCP Nurse Practitioner Family
DX: L03.113 Cellulitis of right upper limb (principal); L02.413 Cutaneous abscess of right upper limb; F90.9 Attention-deficit hyperactivity disorder, unspecified type; F41.9 Anxiety disorder, unspecified; F32.A Depression, unspecified
CPT/HCPCS: 99202; G0463